=== PATIENT | male | born 2005 | race African-American/Black ===

== ENCOUNTER 2024-05-03 08:16 | Emergency (ER) | payer OTHER ==
[~2024-05-03] VITALS: Ht 175.3 cm; Wt 81.8 kg
[2024-05-03] MEDS: ACETAMINOPHEN 500 MG TAB PO ONE (09:00)
[2024-05-03] MEDS: LIDOCAINE 1% MDV 20ML VIAL SC ONE (09:42)
[2024-05-03 10:39] VITALS: BP 121/67; TEMP 98.4; O2SAT 95
== END 2024-05-03 10:41 | disposition home or self-care (01) ==
LOC: EDBD 08:16 → M ED 08:16
DX: S00.83XA Contusion of other part of head, initial encounter (principal); S01.112A Laceration without foreign body of left eyelid and periocular area, initial encounter; W22.01XA Walked into wall, initial encounter; Y92.89 Other specified places as the place of occurrence of the external cause; Y93.89 Activity, other specified; Y99.1 Military activity